=== PATIENT | male | born 1975 | race Caucasian/White ===

== ENCOUNTER 2022-06-15 14:39 | Emergency (ER) | payer BC ==
[2022-06-15] MEDS ORDERED: Acetaminophen/oxyCODONE 325-10 MG Tab PO STA (15:18)
== END 2022-06-15 16:32 | disposition home or self-care (01) ==
LOC: MW.ED 14:39
DX: K64.8 Other hemorrhoids (principal); E78.00 Pure hypercholesterolemia, unspecified; I10 Essential (primary) hypertension; Z79.899 Other long term (current) drug therapy
CPT/HCPCS: 99284; A9270; 99283

== ENCOUNTER 2022-09-07 06:34 | Day surgery (SDC) | payer BC ==
[~2022-09-07 06:34] MED LIST: Lactated Ringers 1,000 ML IV SCH; Sodium Chloride 0.9% 10 ML Syringe FLUSH PRN; Sodium Chloride 0.9% 2.5 ML Syringe FLUSH PRN; Sodium Chloride 0.9% 20 ML SDV IV PRN
[2022-09-07] MEDS ORDERED: Propofol 200 MG/20 ML SDV ONE (07:31)
[2022-09-07] MEDS ORDERED: fentaNYL 100 MCG/2 ML SDV ONE (07:31)
== END 2022-09-07 09:05 | disposition home or self-care (01) ==
LOC: MW.SDS 06:34
PROVIDERS: ATTEND Surgery
DX: Z12.11 Encounter for screening for malignant neoplasm of colon (principal); F41.9 Anxiety disorder, unspecified; E78.5 Hyperlipidemia, unspecified; I10 Essential (primary) hypertension; K43.2 Incisional hernia without obstruction or gangrene; Z87.19 Personal history of other diseases of the digestive system; Z79.899 Other long term (current) drug therapy
CPT/HCPCS: 45378; J2704; J3010; J7120

== ENCOUNTER 2023-02-06 08:12 | Day surgery (SDC) | payer BC ==
[~2023-02-06 08:12] MED LIST changes: +Albuterol 0.083% 2.5 MG/3 ML Neb Soln NEB PRN; +HYDROmorphone 1 MG/ML Syringe IVPUSH PRN; +Metoclopramide 10 MG/2 ML SDV IVPUSH PRN; +Morphine 2 MG/ML SYRINGE IVPUSH PRN; +Naloxone 0.4 MG/ML SDV IVPUSH PRN; +Ondansetron 4 MG/2 ML SDV IVPUSH PRN; +ceFAZolin 2 GM in Sodium Chloride 0.9% 50 ML IV ONE; +droPERidol 5 MG/2 ML SDV IVPUSH PRN; +fentaNYL 50 MCG/ML SDV IVPUSH PRN
[2023-02-06] MEDS ORDERED: fentaNYL 100 MCG/2 ML SDV ONE ×2 (08:34→10:13)
[2023-02-06] MEDS ORDERED: Propofol 200 MG/20 ML SDV ONE (08:34)
[2023-02-06] MEDS ORDERED: Morphine 10 MG/ML SDV ONE (08:34)
[2023-02-06] MEDS ORDERED: Bupivacaine 0.5% 30 ML SDV ONE (09:07)
[2023-02-06] MEDS ORDERED: Ropivacaine 0.5% 5 MG/ML 30 ML SDV ONE (09:22)
[2023-02-06] MEDS ORDERED: Ondansetron 4 MG/2 ML SDV ONE (10:08)
[2023-02-06] MEDS ORDERED: Sugammadex Sodium 200 MG/2 ML VIAL ONE (10:08)
[2023-02-06] MEDS ORDERED: Ketorolac 30 MG/ML SDV ONE (10:08)
[2023-02-06] MEDS ORDERED: Dexamethasone 4 MG/ML 5 ML MDV ONE (10:08)
== END 2023-02-06 12:40 | disposition home or self-care (01) ==
LOC: MW.SDS 08:12
PROVIDERS: ATTEND Surgery
DX: K43.2 Incisional hernia without obstruction or gangrene (principal); F41.9 Anxiety disorder, unspecified; E78.5 Hyperlipidemia, unspecified; I10 Essential (primary) hypertension; E66.9 Obesity, unspecified; Z79.899 Other long term (current) drug therapy; Z79.1 Long term (current) use of non-steroidal anti-inflammatories (NSAID)
CPT/HCPCS: 49591; 64486; J1100; J1885; J2270; J2405; J2704; J2795; J3010; J3490; J7120; 00752

== ENCOUNTER 2024-05-28 15:22 | Emergency (ER) | payer BC ==
[2024-05-28] MEDS ORDERED: Phenylephrine HCl In 0.9% NaCl 1 MG/10 ML Syringe ONE (16:12)
[2024-05-28] MEDS: Bupivacaine 0.5% 10 ML SDV INJECT ONE (16:19)
[2024-05-28] MEDS ORDERED: SODIUM CHLORIDE 0.9% SCH (16:30)
[2024-05-28] MEDS ORDERED: PHENYLEPHRINE IV SCH (16:30)
[2024-05-28] MEDS ORDERED: PHENYLEPHRINE SCH (16:30)
[2024-05-28] MEDS ORDERED: SODIUM CHLORIDE 0.9% IV SCH (16:30)
[2024-05-28] MEDS: SODIUM CHLORIDE 0.9% SCH (17:02)
[2024-05-28] MEDS: PHENYLEPHRINE SCH (17:02)
== END 2024-05-28 18:43 | disposition home or self-care (01) ==
LOC: MW.ED 15:22
DX: N48.39 Other priapism (principal); Z79.899 Other long term (current) drug therapy
CPT/HCPCS: 54220; 99283; J0665; J2371; 99284

== ENCOUNTER 2025-04-01 22:20 | Emergency (ER) | payer BC | END 2025-04-02 00:45 | disposition home or self-care (01) | LOC: MW.ED 22:20 | DX: T81.31XA Disruption of external operation (surgical) wound, not elsewhere classified, initial encounter (principal); Z96.651 Presence of right artificial knee joint; Z79.899 Other long term (current) drug therapy | CPT/HCPCS: 99283 ==